=== PATIENT | female | born 1960 | race Caucasian/White ===

== ENCOUNTER 2018-01-24 13:42 | Emergency (ER) | payer OTHER ==
[~2018-01-24] VITALS: Ht 157.5 cm; Wt 122.5 kg
[2018-01-24 16:35] VITALS: BP 125/80
== END 2018-01-24 16:35 | disposition home or self-care (01) ==
LOC: ED 13:42
DX: G43.909 Migraine, unspecified, not intractable, without status migrainosus (principal); I10 Essential (primary) hypertension; E11.9 Type 2 diabetes mellitus without complications
CPT/HCPCS: J1200; J2765; J3490; J7030

== ENCOUNTER 2018-10-21 15:25 | Emergency (ER) | payer OTHER | END 2018-10-21 16:49 | disposition left against medical advice (07) | LOC: ED 15:25 | DX: Z53.21 Procedure and treatment not carried out due to patient leaving prior to being seen by health care provider (principal) ==